=== PATIENT | female | born 1995 | race Caucasian/White ===

== ENCOUNTER 2024-06-16 04:14 | Inpatient (IN) | payer OTHER ==
[2024-06-16] VITALS (34 sets, daily range): BP systolic 91–128; BP diastolic 50–79; PULSE 69–109; TEMP 97.7–98
[~2024-06-16] VITALS: Ht 160 cm; Wt 70.9 kg
[2024-06-16] MEDS ORDERED: LR 1,000 ML IV SCH (04:45)
--- NOTE | 2024-06-16 05:00 | NUR ---
Pt is a G4 L2, 39.2 weeks, that planned to deliver at [facility] in [place]. Came here for ctx that are 2 minutes apart and she reports to this RN that she did not feel that she could make it to [place] for delivery. Pt denies any hx with this , denies any LOF or vaginal bleeding, reports good movement. Pt also reports she is GBS negative, she would like an epidural for pain management if possible. Pt placed on monitors and vitals obtained. SVE 7/90/-1.
[2024-06-16] MEDS ORDERED: ROPivacaine PF 0.2% 200 ML IV ONE (05:23)
[2024-06-16 05:43] LABS: BASO % 0.3 % (0.0-2.0); EOS % 0.3 % (0.0-4.0); GRAN % 75.9 % (42.2-75.2); HEMATOCRIT 41.1 % (37.0-47.0); HEMOGLOBIN 13.7 g/dl (12.5-16.0); LYMPH # 2.1 K/mm3 (1.2-3.4); LYMPH % 17.8 % (20.0-51.0); MEAN CELL VOLUME 90 fl (80.0-100.0); MEAN CORPUSCULAR HEMOGLOBIN 30 pg (27-31); MEAN CORPUSCULAR HGB CONC 33 g/dl (33.0-37.0); MEAN PLATELET VOLUME 11.1 fl (7.4-10.4); MONO # 0.6 K/mm3 (0.1-0.6); PLATELET COUNT 230 K/mm3 (130-400); RED BLOOD COUNT 4.57 M/mm3 (4.10-5.30); REDCELL DISTRIBUTION WIDTH-CV 12.7 % (11.5-14.5)
[2024-06-16] MEDS ORDERED: LR & Oxytocin 500 ML IV SCH (06:00)
--- NOTE | 2024-06-16 06:20 | NUR ---
1616 MATERNAL BLOOD PRESSURE DECREASE X 1 FLUID BOLUS INITIATED. 1620 MATERNAL BLOOD PRESSURE STILL LOW. POSTION CHANGE ATTEMPTED. PATIENT REPORTS THAT SHE NORMALLY RUNS THAT LOW. PATIENT REPORTS NO SYMPTOMS AT THIS TIME. FHR TRACING CATEGORY 1. 1626 MATERNAL BLOOD PRESSURE IMPROVED.
[2024-06-16] MEDS ORDERED: diphenhydrAMINE 25 MG CAP PO PRN (06:45)
[2024-06-16] MEDS ORDERED: Ondansetron 4 MG/2 ML VIAL IV PRN (06:45)
[2024-06-16] MEDS ORDERED: ePHEDrine 50 MG/10 ML VIAL IV PRN (06:45)
[2024-06-16] MEDS ORDERED: Naloxone 0.4 MG/ML VIAL IV PRN ×2 (06:45→13:45)
[2024-06-16] MEDS ORDERED: diphenhydrAMINE 50 MG/ML 1 ML VIAL IV PRN (06:45)
[2024-06-16] MEDS ORDERED: PRENATAL MVI PO (07:04)
--- NOTE | 2024-06-16 07:22 | NUR ---
AT BEDSIDE. FHR TRACING REVIEWED. PLAN OF CARE UPDATED. SVE @ 4534 +1. AROM @ 5384, CLEAR FLUID.
--- NOTE | 2024-06-16 10:24 | NUR ---
0951 PROVIDER CALLED FOR DELIVERY. PATIENT ONLY PUSHING WITH EVERY OTHER CONTRACTION. 1005 PROVIDER ON UNIT IN ANOTHER DELIVERY. 1022 PROVIDER IN PATIENT ROOM. SETUP FOR DELIVERY INITIATED. 1024 OF VIABLE FEMALE INFANT. PLACED ON MOTHER'S ABDOMEN. CARE OF GIVEN TO NURSERY RN. 1029 OF PLACENTA. PITOCIN BOLUS NOT INITIATED DUE TO PATIENT REQUEST. PROVIDER AWARE OF THIS AND OKAY WITH IT. REPAIR OF SUPERFICIAL LACERATION BY . FUNDUS FIRM AND BLEEDING WNL.
[2024-06-16] MEDS ORDERED: Loratadine 10 MG TAB PO PRN (10:45)
[2024-06-16] MEDS ORDERED: Magnes Hydrox (MOM) 80 MG/ML 30 ML CUP PO PRN (10:45)
[2024-06-16] MEDS ORDERED: Measles/Mumps/Rubella Virus Vaccine Live w Diluent 0.5 ML VIAL SQ SCH (13:45)
[2024-06-16] MEDS ORDERED: Mag/Al Hydrox/Simeth Susp 30 ML CUP PO PRN (13:45)
[2024-06-16] MEDS ORDERED: Phenylephrine/Mineral Oil/Petrolatum 57 GM TUBE RC PRN (13:45)
[2024-06-16] MEDS ORDERED: Acetaminophen 500 MG TAB PO SCH (13:45)
[2024-06-16] MEDS ORDERED: Witch Hazel 50% Pads Bulk TUB TP PRN (13:45)
[2024-06-16] MEDS ORDERED: Ibuprofen 800 MG TAB PO SCH (13:45)
[2024-06-16] MEDS ORDERED: oxyCODONE 5 MG TAB PO PRN (13:45)
--- NOTE | 2024-06-16 14:45 | NUR ---
PATIENT ASSISTED TO EDGE OF BED. EPIDURAL CATHETER REMOVED. PATIENT THEN STANDBY ASSISTED X 1 RN TO BATHROOM. PATIENT ABLE TO VOID. PERICARE COMPLETED. PATIENT STANDBY ASSISTED TO ROOM. PATIENT ORIENTED TO ROOM
[2024-06-16] MEDS ORDERED: Sennosides/Docusate 8.6-50 MG TAB PO SCH (17:00)
[2024-06-16] MEDS ORDERED: traZODone 50 MG TAB PO PRN (21:00)
--- NOTE | 2024-06-16 22:30 | NUR ---
Assumed care from Kristen Venegas R.N. at this time.
[2024-06-17 00:10] VITALS: BP 102/62; PULSE 73; TEMP 98
[2024-06-17] MEDS ORDERED: MOTRIN 800800 MG/TAB PO (07:09)
[2024-06-17 07:30] VITALS: BP 97/61; PULSE 75; TEMP 98
--- NOTE | 2024-06-17 10:29 | NUR ---
Initial visit; Parents thanked for looking in on them and offering congratulations for the of their daughter. Signal Intelligence Analyst offered God's blessings and stated that she hoped their experience here has been a good one to which they commented that it had been good. thanked them for choosing [facility].
== END 2024-06-17 13:25 | disposition home or self-care (01) | DRG 807 ==
LOC: LDRO 04:14 → LDR 04:46 → OB 04:46
PROVIDERS: Student in an Organized Health Care Education/Training Program; ADMIT Obstetrics & Gynecology
PROC: 10E0XZZ Delivery of Products of Conception, External Approach (ICD-10-PCS; principal; 2024-06-16)
PROC: 0HQ9XZZ Repair Perineum Skin, External Approach (ICD-10-PCS; 2024-06-16)
PROC: 10907ZC Drainage of Amniotic Fluid, Therapeutic from Products of Conception, Via Natural or Artificial Opening (ICD-10-PCS; 2024-06-16)
DX: O70.0 First degree perineal laceration during delivery (principal); Z37.0 Single live birth; Z3A.39 39 weeks gestation of pregnancy
CPT/HCPCS: J2795; J7120